=== PATIENT | female | born 1945 | race Caucasian/White ===

== ENCOUNTER 2016-11-15 22:56 | Emergency (ER) | payer OTHER ==
--- NOTE | 2016-11-16 00:29 | PROVIDER DOCUMENTATION ---
HPI-Respiratory General - General Source: patient <Yolis Hinojosa - Last Filed: 11/16/16 00:32> - General Source: patient - History of Present Illness-Resp Quality of Pain: reports: none Severity in ED: reports: mild Onset/Duration: reports: 2 days ago Timing: reports: still present Cough Quality/Degree: reports: mild, productive cough, sputum. denies: dry cough Episode Frequency: occasional episodes Associated Symptoms: reports: cough, fever/chills. denies: chest pain/soreness , dizziness, flu-like symptoms, headache, heart racing, hurts to breathe, hyperventilating, lightheadedness, muscle/bodyaches, shortness of breath, sinus pain, short of breath, sore throat, sweaty, wheezing <Maurizio Banks - Last Filed: 11/16/16 00:48> - General Chief Complaint: Cough Stated Complaint: FLU SX Time Seen by Provider: 11/15/16 23:50 Allergies/Adverse Reactions: Patient Allergies Allergy/AdvReac Type Severity Reaction Status Date / Time butorphanol tartrate * Allergy Intermediate aggitation Verified 11/15/16 23:56 [From Stadol] hydromorphone HCl * Allergy Intermediate "MAKES HER Verified 11/15/16 23:56 [From Dilaudid] CRAZY" morphine Allergy Intermediate aggitation Verified 11/15/16 23:56 zolpidem tartrate * Allergy Intermediate "MAKES HER Verified 11/15/16 23:56 [From Ambien] CRAZY" Home Medications: Home Medication List Medication Instructions Recorded Confirmed Last Taken Type Metformin [Glucophage] 500 mg PO BID CC 09/13/12 04/12/13 04/12/13 09:00 History 1po Levothyroxine [Synthroid] 88 microgm PO DAILY 11/05/12 04/12/13 04/12/13 09:00 History 1po Losartan [Cozaar] 50 mg PO DAILY 11/05/12 04/12/13 04/12/13 09:00 History 1po Clopidogrel [Plavix] 75 mg PO DAILY 11/24/12 04/12/13 04/12/13 09:00 History 1po Potassium Chloride 10 meq PO BID 11/24/12 04/12/13 03/27/13 History 1po Budesonide/Formoterol Fumarate 10.2 gm IH 04/12/13 04/12/13 04/12/13 08:00 History [Symbicort 160-4.5 Mcg Inhaler] 2puffs Buspirone [Buspar] 5 mg PO DAILY 04/12/13 04/12/13 04/12/13 09:00 History 1po Cephalexin [Keflex] 500 mg PO TID #21 capsule 04/12/13 Unknown Rx Gabapentin 300 mg PO BID 04/12/13 04/12/13 04/12/13 09:00 History 1po Hydrocodone Bit/Acetaminophen 1 each PO TID #21 tablet 04/12/13 Unknown Rx [Vicodin 5-500 Tablet] Tramadol [Ultram] 50 mg PO BID 04/12/13 04/12/13 04/12/13 09:00 History 1po Azithromycin [Zithromax Z-Glen] 250 mg PO DIRECTED #1 pkg 11/16/16 Unknown Rx - History of Present Illness-Resp Nature of Presenting Problem: 71 y/o WF c hx of COPD (Yolis Hinojosa) Pt is a 71 yof who presents to ER with CC of a cough x2 days. Pt denies sob, N/V /D, C/P, but does report a fever of 99 in triage. No further complaints. Pt reports that she has been told that she has COPD, but pt "does not claim it." ( Maurizio Banks) Review of Systems - Adult - REVIEW OF SYSTEMS - ADULT Constitutional: reports: fever. denies: chills, fatique, night sweats, weight gain, weight loss Eyes: reports: no symptoms reported Ears, Nose, Mouth & Throat: reports: no symptoms reported Cardiovascular: denies: chest pain, edema, heart murmur, irregular heart rate, orthopnea, palpitations, poor circulation, PND, syncope Respiratory: reports: cough, excessive sputum production. denies: chronic cough , dyspnea on exertion, hemoptysis, pleurisy, shortness of breath, wheezing Gastrointestinal: denies: abdominal pain, hematemesis, constipation, diarrhea, difficulty swallowing, frequent heartburn, nausea, poor appetite, rectal bleeding, vomiting Genitourinary: reports: no symptoms reported Musculoskeletal: reports: no symptoms reported Integumentary: reports: no symptoms reported Neurological: reports: no symptoms reported Psychiatric: reports: no symptoms reported Endocrine: reports: no symptoms reported Hematologic/Lymphatic: reports: no symptoms reported Allergic/Immunologic: reports: no symptoms reported All Other Systems: Reviewed and Negative <Maurizio Banks - Last Filed: 11/16/16 00:48> Past History - Adult - PAST MEDICAL HISTORY-ADULT Review of Records: reports: Nursing Assessment Review, Medications Reviewed Respiratory: reports: COPD - IMMUNIZATION STATUS Childhood Immunizations: See Nurse Assessment Flu Vaccine: See Nurse Assessment <Maurizio Banks - Last Filed: 11/16/16 00:48> Physical Exam-General - PHYSICAL EXAM-ADULT Initial Vital Signs Reviewed: Yes - CONSTITUTIONAL General Appearance: appears well, alert, no apparent distress. negative: cachetic, obese, thin, anxious, lethargic, slow to respond, obtunded, combative - HEAD, EARS, NOSE, MOUTH & THROAT HENMT: normocephalic/atraumatic, moist mucous membranes, normal ENT inspection, TMs normal, pharynx normal. negative: dental decay, hearing deficit, pharyngeal erythema, tonsillar exudate, TM abnormal, TM obscurred by cerumen, frontal tenderness, maxillary tenderness - NECK Neck: non-tender, full range of motion, supple. negative: normal inspection, Brudzinski's sign, C-spine tenderness, limited range of motion, lymphadenopathy - RESPIRATORY Respiratory: chest non-tender, lungs clear, normal breath sounds. negative: respiratory distress, decreased breath sounds, accessory muscle use, crackles, rales, rhonchi, stridor, wheezing - CARDIOVASCULAR Cardiovascular: normal peripheral pulses, regular rate, rhythm. negative: bradycardia, tachycardia, irregularly irregular - GASTROINTESTINAL (ABDOMEN) Abdominal Exam: normal bowel sounds, non tender, soft. negative: abnormal bowel sounds, distended, tenderness, mass - LYMPHATIC Lymphatic: no adenopathy. negative: axilla node tender, cervical node tenderness, inguinal node tender - MUSCULOSKELETAL Back Exam: no CVA tenderness, no vertebral tenderness, kyphosis. negative: CVA tenderness, decreased range of motion, ecchymosis, muscle spasm, swelling, vertebral tenderness Extremity: normal range of motion, non-tender, normal gait. negative: deformity , erythema, inflammation, pulse deficit, pedal edema, slow capillary refill, swelling, tenderness - SKIN Integumentary: normal color, normal turgor, warm/dry. negative: abrasion(s), ecchymosis, erythema, laceration(s), swelling, tenderness, warm - NEUROLOGIC Neurologic: grossly normal, no motor/sensory deficits. negative: facial droop, focal weakness, motor weakness, sensory deficit - PSYCHIATRIC Psych/Mental Status: normal mood/affect, normal thought content, normal thought process, oriented x 3 <Maurizio Banks - Last Filed: 11/16/16 00:48> Progress - XRAY 1 XRAY: Bilateral XRAY Study: Chest Impression: Normal (poor inspiration, no obvious pna ER prelim) <Yolis Hinojosa - Last Filed: 11/16/16 00:32> <Maurizio Banks - Last Filed: 11/16/16 00:48> - PLAN OF CARE/RESULTS Progress/Plan/Lab Results: Vital Signs Temp Pulse Resp BP Pulse Ox 11/15/16 23:16 99.2 F 95 H 14 129/87 95 butorphanol tartrate * [From Stadol] Allergy (Intermediate, Verified 11/15/16 23 :56) aggitation hydromorphone HCl * [From Dilaudid] Allergy (Intermediate, Verified 11/15/16 23: 56) "MAKES HER CRAZY" morphine Allergy (Intermediate, Verified 11/15/16 23:56) aggitation zolpidem tartrate * [From Ambien] Allergy (Intermediate, Verified 11/15/16 23:56 ) "MAKES HER CRAZY" Metformin [Glucophage] 500 mg PO BID CC 09/13/12 Levothyroxine [Synthroid] 88 microgm PO DAILY 11/05/12 Losartan [Cozaar] 50 mg PO DAILY 11/05/12 Clopidogrel [Plavix] 75 mg PO DAILY 11/24/12 Potassium Chloride 10 meq PO BID 11/24/12 Budesonide/Formoterol Fumarate [Symbicort 160-4.5 Mcg Inhaler] 10.2 gm IH Buspirone [Buspar] 5 mg PO DAILY 04/12/13 Cephalexin [Keflex] 500 mg PO TID #21 capsule 04/12/13 Gabapentin 300 mg PO BID 04/12/13 Hydrocodone Bit/Acetaminophen [Vicodin 5-500 Tablet] 1 each PO TID #21 tablet Tramadol [Ultram] 50 mg PO BID 04/12/13 Orders Category Date Time Status CHEST-2 VIEWS [RAD] Stat Exams 11/15/16 23:52 Taken Flu Swab [INFLUENZA SCREEN A/B] Stat Lab 11/15/16 23:18 Completed (Yolis Hinojosa) Vital Signs - 24 hr 11/15/16 23:16 Temperature 99.2 F Pulse Rate 95 H Respiratory 14 Rate Blood Pressure 129/87 O2 Sat by Pulse 95 Oximetry Orders Category Date Time Status CHEST-2 VIEWS [RAD] Stat Exams 11/15/16 23:52 Taken Flu Swab [INFLUENZA SCREEN A/B] Stat Lab 11/15/16 23:18 Completed (Maurizio Banks) Departure - Departure Time of Disposition Order: 00:33 Certified Medical Emergency: Emergent <Yolis Hinojosa - Last Filed: 11/16/16 00:32> - Departure Time of Disposition Order: 00:48 Certified Medical Emergency: Emergent <Maurizio Banks - Last Filed: 11/16/16 00:48> - Departure DIAGNOSIS: Bronchitis Disposition: HOME 01 Condition: Stable Additional Instructions: Follow up with your primary care physician ED Follow Up Instructions: You have been treated by a care provider in the Emergency Department. These instructions are being provided to you so you can have an understanding of how to care for yourself upon discharge. Upon discharge from the Emergency Department, you are responsible for making arrangements for follow-up care by a physician of your choice. Take all prescribed medications as directed. Return to the Emergency Department immediately for any new or worsening symptoms. You may call the Physician Referral phone number at [phone] to obtain a list of Physicians who are taking new patients. Prescriptions: Azithromycin [Zithromax Z-Glen] 250 mg PO DIRECTED #1 pkg Referrals: Ashok Mcginnis MD [Primary Care Provider] - Attestation - Physician/ PIPE Attestation Patient care was provided by Advanced Practice Provider:: Yes Advanced Practice Provider:: Yolis Hinojosa Advanced Practice Provider documentation review:: The Mid-level provider documentation, treatment plan and medical decision making was reviewed by the physician who agrees with all treatment and medical decision making by the MLP. <Yolis Hinojosa - Last Filed: 11/16/16 00:32> - Scribe Verification/Attestation Scribe:: Maurizio Banks Acting as Scribe for:: Yolis Hinojosa Scribe documention review:: This chart was documented by a scribe and accurately reflects the service the provider performed and the decisions made by the provider. <Maurizio Banks - Last Filed: 11/16/16 00:48> Physician Attestation
[2016-11-16 00:59] VITALS: BP 127/58
--- NOTE | 2016-11-16 08:01 | Diag Imaging Result Document ---
PROCEDURE NAME: CHEST-2 VIEWS - 11/15/2016 FRONTAL AND LATERAL CHEST, TWO VIEWS: COMPARISON: Compared to 12/05/2012. FINDINGS: The lungs are well expanded. The heart is not enlarged. The vessels are not distended. No pleural effusions. There is calcified granuloma in the right lower lobe. The right hemidiaphragm is elevated. IMPRESSION: No pneumonia.
== END 2016-11-16 01:03 | disposition home or self-care (01) ==
LOC: ED 22:56
DX: J40 Bronchitis, not specified as acute or chronic (principal); R05 Cough; R09.3 Abnormal sputum; R50.9 Fever, unspecified; J44.9 Chronic obstructive pulmonary disease, unspecified; Z79.02 Long term (current) use of antithrombotics/antiplatelets; Z79.899 Other long term (current) drug therapy
CPT/HCPCS: 71020; 87804